=== PATIENT | female | born 1945 | race Caucasian/White ===

== ENCOUNTER → 2019-05-13 | Day surgery (SDC) | payer MEDICARE, OTHER ==
[~2019-05-13] MED LIST: ACETAMINOPHEN-1 EAC1 PO; ASPIRIN325 PO; COLACE100 MG PO; LEVOXYL88 MCG PO; LIPITOR 20 MG T20 M1 PO; LOSARTAN-HCTZ1 EACH PO; MOBIC15 MG PO; OMEPRAZOLE 20 M20 M1 PO; WELLBUTRIN XL150 MG PO
[2019-05-13 11:19] LABS: HEMATOCRIT 39.2 % (37.0-47.0); HEMOGLOBIN 13.3 gm/dL (12.0-15.0); MCH 32.1 pg (26.0-34.0); MCHC 33.9 g/dL (28.0-37.0); MCV 94.6 fL (80.0-100.0); MPV 10.2 fl. (7.2-11.1); RBC 4.14 mil/uL (4.20-5.00); RDW-CV 13.1 % (10.5-14.5); WBC 4.9 thou/uL (4.0-11.0)
[2019-05-13 11:42] LABS: CALCIUM 9.2 mg/dL (8.5-10.1); CREATININE 0.8 mg/dL (0.6-1.3); POTASSIUM 3.9 mmol/L (3.5-5.1)
[2019-05-13 11:55] LABS: ALBUMIN 4.1 g/dL (3.4-5.0); TOTAL BILIRUBIN 0.7 mg/dL (<0.1-1.0); TOTAL PROTEIN 7.4 g/dL (6.4-8.2)
--- NOTE | 2019-05-13 14:52 | EKG ---
[place] [address] ELECTROCARDIOGRAM REPORT Name: RANDIFRANCISCO SON Room: [facility]#: [id number] Admission: 05/13/19 Attend Phys: Kaitlin Barrett DO Discharge: Date of : 41 Report #: [id number] THIS REPORT FOR: //name// [facility] Test Date: 2019-05-13 Test Time: 11:07:44 Pat Name: FRANCISCO OSHEA Department: Room: Gender: F P[employer] Executive: : 1945 Requested By: Kalyani Iraheta Order Number: [id number] Angely MD: Vinay Bates Measurements Intervals [place] Rate: 66 P: 14 KS: 180 QRS: 21 QRSD: 92 T: 57 QT: 409 QTc: 429 Interpretive Statements Sinus rhythm No previous ECG available for comparison Electronically Signed On 05-13-2019 14:52:11 CDT by Vinay Bates [email or web address] <ELECTRONICALLY SIGNED> By: Vinay Bates MD, [facility] 05/13/19 1452 1107 1107 Vinay Bates MD, FACC /EPI
--- NOTE | 2019-05-20 08:55 | OP ---
[address] [address] OPERATIVE REPORT Name: FRANCISCO OSHEA Room: [facility]#: [id number] Admission: 05/13/19 Attend Phys: Kaitlin Barrett DO Discharge: Date of : 41 Report #: [id number] THIS REPORT FOR: //name// CC: Kaitlin [facility] Physician staff DATE OF SERVICE: 05/13/2019 PREOPERATIVE DIAGNOSIS: Right chronic anterior tibialis tendon rupture. POSTOPERATIVE DIAGNOSIS: Right chronic anterior tibialis tendon rupture. SURGEON: Po Barrett DO DEMO COORDINATOR: Jovany Bonilla DO. PROCEDURES PERFORMED: 1. Right anterior tibialis tendon reconstruction with allograft. 2. Intraoperative physician-guided fluoroscopy less than 1 hour. ANESTHESIA: General. ESTIMATED BLOOD LOSS: 20 mL. SPECIMENS: None. DRAINS: None. COMPLICATIONS: None. CONDITION: The patient is stable. DISPOSITION: PACU to home. ANTIBIOTICS: 2 grams Ancef IV preoperatively. TOURNIQUET: 75 minutes at 250 mmHg. IMPLANTS: [employer] 5.5 mm tenodesis screw and a presewed allograft. INDICATIONS: The patient is a very pleasant 73-year-old female who sustained an injury to her right ankle back in 11/2018. She was followed up by an orthopedic surgeon at a different facility. An MRI was performed and this did show a chronic rupture of her anterior tibialis tendon at the level of the ankle joint. She was noting difficulty with dorsiflexion of the ankle, specifically with [facility] [address] [place] [address] OPERATIVE REPORT Name: FRANCISCO OSHEA Room: [facility].#: [id number] Admission: 05/13/19 Attend Phys: Kaitlin Barrett DO Discharge: Date of : 41 Report #: [id number] increased walking, she was noticing a flat foot type gait. With the clinical and imaging findings, we did discuss multiple surgical options. She had failed conservative therapies with anti-inflammatories, activity modification, shoewear modification, physical therapy and despite these measures, she continued to have significant pain and weakness with ankle dorsiflexion. Therefore, I did recommend a right anterior tibialis tendon reconstruction with possible allograft. The benefits, risks, complications, and alternatives of this procedure were discussed with the patient in detail. These include but are not limited to bleeding, surgical site infection, neurovascular compromise, tendon re-rupture, continued weakness, continued pain, need for further surgery, DVT, PE as well as the inherent risks of anesthesia. The patient understands these risks and is agreeable to proceed. Consent was signed in the preoperative holding area and is on the chart at the time of surgery. Operative site was marked. DESCRIPTION OF PROCEDURE: The patient was brought to the operating room and placed supine on the operating table. She was administered general anesthetic. A well-padded tourniquet was placed on the proximal portion of the right thigh. Right lower extremity was then sterilely prepped with ChloraPrep and draped free in the usual fashion. This was allowed to dry for 3 minutes prior to draping. A timeout was then performed to confirm correct patient, site, and procedure, surgical site markings were identified and all in the room agreed to proceed. The procedure began with exsanguination of the right lower extremity with an Esmarch and inflation of the tourniquet to 250 mmHg. Next, a standard anterior incision was made directly over the anterior tibialis tendon. This was carried through skin and subcutaneous tissues. Hemostasis was achieved with electrocautery. The anterior tibialis tendon retinaculum was incised. She was noted to have a chronic appearing tear to the tendon just above the level of the ankle joint, this was debrided back to healthy appearing tissue. She was noted to have extensive fibrosis of her peritenon and a little distal fibers remained. Therefore, the decision was made at this point to use an allograft. We utilized a presewed allograft from [employer]. We whipstitched the distal aspect of the tendon and then we dunked this into the medial cuneiform utilizing a 5.5 mm tenodesis screw. This was noted to give us excellent fixation into the medial cuneiform, we then pulled the graft proximally and holding the ankle in neutral dorsiflexed position. The presewed ends of the graft were then weaved in and out of the proximal aspect of the torn tendon and then this was oversewed with a #2 FiberWire suture, this was noted to give us an excellent repair. The ankle, at this point, was resting in a neutral dorsiflexed position. We then oversewed the peritenon with 0 Vicryl suture. The wound was irrigated with normal saline. Subcutaneous tissue closed with 2-0 Vicryl suture. Skin reapproximated with 3-0 nylon suture. Tourniquet was let down at approximately 75 minutes. Wound was then dressed with Xeroform, 4 x 4s, ABD, soft roll and a well-padded posterior and U-plaster splint was applied with the ankle in neutral dorsiflexed position. The patient tolerated the [place] [address] OPERATIVE REPORT Name: FRANCISCO OSHEA Room: [facility]#: [id number] Admission: 05/13/19 Attend Phys: Kaitlin Barrett DO Discharge: Date of : 41 Report #: [id number] transferred to [facility] in stable condition. All needle and sponge counts were correct x 2 and I was present throughout the entirety of the case. <ELECTRONICALLY SIGNED> By: Kaitlin Barrett DO 05/20/19 0855 [id number] 1616Angblanka Barrett DO /nt
== END | disposition home or self-care (01) ==
LOC: M.SUR 08:52
PROVIDERS: Surgery
DX: S86.211A Strain of muscle(s) and tendon(s) of anterior muscle group at lower leg level, right leg, initial encounter (principal); Z79.82 Long term (current) use of aspirin; Z79.899 Other long term (current) drug therapy; Z98.890 Other specified postprocedural states; X58.XXXA Exposure to other specified factors, initial encounter; Y93.89 Activity, other specified; Y92.89 Other specified places as the place of occurrence of the external cause; Y99.8 Other external cause status